=== PATIENT | male | born 1990 | race African-American/Black ===

== ENCOUNTER → 2020-12-30 09:58 | Outpatient (CLI) | payer OTHER ==
[~2020-12-30 09:58] MED LIST: ACIDOPHILUS1 EAC1 PO; RELAGESIC 5001 EACH PO
== END | disposition home or self-care (01) ==
LOC: LAB 09:58
PROVIDERS: ATTEND Emergency Medicine Pediatric Emergency Medicine
DX: Z03.818 Encounter for observation for suspected exposure to other biological agents ruled out (principal)